=== PATIENT | female | born 1970 | race Two or more races ===

== ENCOUNTER 2019-01-24 21:50 | Inpatient (IN) | payer OTHER ==
[~2019-01-24] VITALS: Ht 160 cm; Wt 97.5 kg
[2019-01-24] MEDS ORDERED: IV NS 0.9% 1,000 ML BAG IV ONE (22:00)
[2019-01-24] MEDS ORDERED: METOCLOPRAMIDE HCL 10 MG/2 ML VIAL IV ONE (22:00)
[2019-01-24] MEDS ORDERED: METOCLOPRAMIDE HCL 10 MG/2 ML VIAL ONE (22:04)
--- NOTE | 2019-01-24 22:05 | NUR ---
PT [id number] FR HOME FOR FLU-LIKE S/S, CHILLS, N/V/D SINCE XMONDAY, HYPOTENSIVE 70/45 W/ BG 96 IN FIELD, GIVEN NS 1L IVB & ZOFRAN 4MG IN FIELD. PT AOX4. C/O OF "PAIN ALL OVER". PT ON MONITOR IN BED 1. WILL CONTINUE TO MONITOR.
--- NOTE | 2019-01-24 22:08 | NUR ---
PHLEB AT BEDSIDE FOR BLOOD DRAW
[2019-01-24 22:16] LABS: HEMOGLOBIN 11.7 g/dL (11.5-14.8); LYMPHOCYTES # (AUTO) 0.7 /CMM (0.8-4.8); MONOCYTES # (AUTO) 0.5 /CMM (0.1-1.30); NEUTROPHILS # (AUTO) 9.8 /CMM (1.8-8.9); PLATELET COUNT (AUTO) 81 /CMM (150-450)
[2019-01-24 22:20] LABS: BASOPHILS % (AUTO) 0.2 % (0.0-2.0); EOSINOPHILS % (AUTO) 0.3 % (0.0-6.0); HEMATOCRIT 36 % (33-45); LYMPHOCYTES % (AUTO) 6.4 % (20.0-44.0); MEAN CORPUSCULAR HGB CONC 33 g/dl (31.0-36.0); MEAN CORPUSCULAR VOLUME 93 fL (82-100); MONOCYTES % (AUTO) 4.6 % (2.0-12.0); NEUTROPHILS % (AUTO) 88.5 % (43.0-81.0); RED BLOOD CELL COUNT(AUTO) 3.83 MIL/uL (4.0-5.2); WHITE BLOOD COUNT (AUTO) 11.1 K/uL (4.3-11.0)
[2019-01-24 22:22] LABS: CALCIUM, SERUM 7.5 mg/dL (8.5-10.1); CARBON DIOXIDE 21 mmol/L (21-32); CHLORIDE 106 mmol/L (98-107); CREATININE 2.6 mg/dL (0.6-1.3); GLUCOSE 92 mg/dL (74-106); POTASSIUM 4.4 mmol/L (3.5-5.1); SODIUM SERUM 139 mmol/L (136-145); UREA NITROGEN, BLOOD 22 mg/dL (7-18)
[2019-01-24 22:28] LABS: ALANINE AMINOTRANSFERASE 56 U/L (12-78); ALKALINE PHOSPHATASE 150 U/L (46-116); ASPARTATE AMINOTRANSFERASE 49 U/L (15-37); BILIRUBIN,DIRECT 1.5 mg/dL (0.0-0.2); BILIRUBIN,TOTAL 1.8 mg/dL (0.2-1.0); LIPASE 23 U/L (73-393); TOTAL PROTEIN, SERUM 5.3 g/dL (6.4-8.2)
[2019-01-24 23:19] LABS: BAND % (MANUAL) 31 % (0.0-5.0); LYMPHOCYTES % (MANUAL) 8 % (16-48); METAMYELOCYTES % 2 % (0-0); NEUTROPHILS % (MANUAL) 55 (42-76); PROMYELOCYTES % 1 % (0-0); REACTIVE LYMPHOCYTES 3 % (0-0)
[2019-01-24] MEDS ORDERED: ONDANSETRON HCL/PF 4 MG/2 ML VIAL IM ONE (23:30)
--- NOTE | 2019-01-24 23:32 | NUR ---
PT TAKEN TO RADIOLOGY [facility]IA [facility]
--- NOTE | 2019-01-24 23:47 | NUR ---
PT RETURNED FROM RADIOLOGY
--- NOTE | 2019-01-25 00:20 | NUR ---
PT UNABLE TO PROVIDE URINE SAMPLE AT THIS TIME
--- NOTE | 2019-01-25 00:25 | NUR ---
Patient is resting comfortably in bed with eyes closed. Easily aroused.
--- NOTE | 2019-01-25 00:38 | NUR ---
PT TAKEN TO RADIOLOGY [facility]IA [facility]
--- NOTE | 2019-01-25 00:47 | NUR ---
PT RETURNED FROM RADIOLOGY VIA [facility]
[2019-01-25] MEDS ORDERED: LISI10TA5 PO (01:10)
[2019-01-25] MEDS ORDERED: GABA600T12 PO (01:10)
[2019-01-25] MEDS ORDERED: OXYB10TA30 PO (01:11)
[2019-01-25 01:29] LABS: APPEARANCE,URINE Cloudy (CLEAR); BILIRUBIN,URINE MODERATE (NEGATIVE); BLOOD, URINE Moderate Ery/uL (NEGATIVE); COLOR,URINE Dark (YELLOW); KETONES,URINE Trace (NEGATIVE); LEUKOCYTE ESTERASE ,URINE Large (NEGATIVE); NITRITE, URINE Negative (NEGATIVE); PROTEIN,URINE 100 mg/dl (NEGATIVE); UGLUCOSE Negative (NEGATIVE)
[2019-01-25 01:56] LABS: BACTERIA,URINE Many /HPF (None Seen); RBC,URINE 51-80 /HPF (0-2); WBC,URINE 81-100 /HPF (0-3)
[2019-01-25 01:57] LABS: SQUAMOUS EPITHELIAL CELL,UR Few /HPF (None Seen)
[2019-01-25] MEDS ORDERED: CEFTRIAXONE 1GM BAG (ER ONLY) 50 ML IV ONE (02:21)
--- NOTE | 2019-01-25 02:26 | NUR ---
Patient is resting comfortably in bed with eyes closed. Easily aroused.
[2019-01-25] MEDS ORDERED: MAG HYDROX/AL HYDROX/SIMETH 30 ML UDC PO PRN (02:30)
[2019-01-25] MEDS ORDERED: CEFTRIAXONE 1GM BAG (ER ONLY) 1 GM/50 ML PIGGYBACK IV ONE (02:30)
[2019-01-25] MEDS ORDERED: MAGNESIUM HYDROXIDE 30 ML UDC PO PRN (02:30)
[2019-01-25] MEDS ORDERED: ONDANSETRON HCL/PF 4 MG/2 ML VIAL IVP PRN (02:30)
--- NOTE | 2019-01-25 02:58 | NUR ---
REPORT GIVEN TO MIO MONDRAGON FOR ADAM
[2019-01-25] MEDS: IV 1/2NS 1000 ML 1,000 ML IV PRN ×2 (03:25→21:23)
--- NOTE | 2019-01-25 03:40 | NUR ---
TD RN NOTES RECEIVED PT ON BED. A/O X 4. ON ROOM AIR NO RESPIRATORY DISTRESS NOTED. ON TELE MONITOR ST 100. IV ACCESS ON RAC G18 AND LACG18 BOTH PATENT AND INTACT. HEAD OF BED ELEVATED. SIDE RAILS UP. CALL LIGHT WITHIN REACH. BED ALARM ON. WILL CONTINUE TO MONITOR PT CLOSELY.
[2019-01-25 04:00] VITALS: BP 90/53
[2019-01-25] MEDS: ACETAMINOPHEN 325 MG TABLET PO PRN (04:50)
[2019-01-25 06:28] LABS: BASOPHILS % (AUTO) 0.1 % (0.0-2.0); EOSINOPHILS % (AUTO) 0.4 % (0.0-6.0); HEMATOCRIT 37 % (33-45); HEMOGLOBIN 12.1 g/dL (11.5-14.8); LYMPHOCYTES % (AUTO) 8.9 % (20.0-44.0); MEAN CORPUSCULAR HGB CONC 33 g/dl (31.0-36.0); MEAN CORPUSCULAR VOLUME 92 fL (82-100); MONOCYTES # (AUTO) 0.5 /CMM (0.1-1.30); MONOCYTES % (AUTO) 4.9 % (2.0-12.0); NEUTROPHILS # (AUTO) 9.2 /CMM (1.8-8.9); NEUTROPHILS % (AUTO) 85.7 % (43.0-81.0); PLATELET COUNT (AUTO) 71 /CMM (150-450); RED BLOOD CELL COUNT(AUTO) 4.02 MIL/uL (4.0-5.2); WHITE BLOOD COUNT (AUTO) 10.7 K/uL (4.3-11.0)
--- NOTE | 2019-01-25 06:52 | NUR ---
TD RN NOTES NO ACUTE CHANGES NOTED DURING THE SHIFT. PROVIDED COMFORT AND SAFETY. WILL ENDORSE TO THE AM NURSE FOR CONTINUITY OF CARE.
[2019-01-25 07:05] LABS: CHOLESTEROL 73 mg/dL (<200); LDL 24 mg/dL (0-99); THYROID STIMULATING HORMONE 1.878 uIU/mL (0.358-3.74); TRIGLYCERIDES 174 mg/dL (30-150)
[2019-01-25 07:14] LABS: ALANINE AMINOTRANSFERASE 59 U/L (12-78); ALKALINE PHOSPHATASE 157 U/L (46-116); ASPARTATE AMINOTRANSFERASE 57 U/L (15-37); CALCIUM, SERUM 7.3 mg/dL (8.5-10.1); CARBON DIOXIDE 12 mmol/L (21-32); CHLORIDE 107 mmol/L (98-107); CREATININE 2.4 mg/dL (0.6-1.3); GLUCOSE 74 mg/dL (74-106); MAGNESIUM 1.4 mg/dL (1.8-2.4); PHOSPHORUS 5.4 mg/dL (2.5-4.9); POTASSIUM 3.8 mmol/L (3.5-5.1); SODIUM SERUM 139 mmol/L (136-145); TOTAL PROTEIN, SERUM 5.3 g/dL (6.4-8.2); UREA NITROGEN, BLOOD 23 mg/dL (7-18)
--- NOTE | 2019-01-25 07:15 | NUR ---
RN INITIAL NOTE PATIENT IN BED, AWAKE AND ALERT. NO COMPLAINS OF ANY PAIN NOR SOB AT THIS TIME. ON ROOM AIR. ON TELE MONITOR, SR ST. HAS RIGHT AND LEFT AC 318 WITH HALF NS AT 100 ML/HR. BED LOCKED AND IN LOWEST POSITION. CALL LIGHT WITHIN REACH. WILL CONTINUE TO MONITOR CLOSELY.
[2019-01-25 07:21] LABS: HDL CHOLESTEROL < 10 mg/dL (40-60)
[2019-01-25 08:00] VITALS: BP 97/57
[2019-01-25] MEDS: PANTOPRAZOLE 40 MG TABLET.DR PO SCH (08:19)
[2019-01-25] MEDS: GABAPENTIN 300 MG CAPSULE PO SCH ×3 (08:19→16:04)
--- NOTE | 2019-01-25 08:19 | NUR ---
RN NOTE LISINOPRIL NOT ADMINISTERED BECAUSE OF LOW BP 97/57. PATIENT INITIALLY CAME FROM ER WITH HYPOTN
[2019-01-25] MEDS ORDERED: LISINOPRIL (10MG) 10 MG TABLET PO SCH (09:00)
[2019-01-25 09:09] LABS: BAND % (MANUAL) 15 % (0.0-5.0); EOSINOPHILS % (MANUAL) 1 % (0-4); LYMPHOCYTES % (MANUAL) 7 % (16-48); MONOCYTES % (MANUAL) 4 % (0-11.0); MYELOCYTES % 1 % (0-0); NEUTROPHILS % (MANUAL) 72 (42-76)
--- NOTE | 2019-01-25 10:17 | NUR ---
RN NOTE DR KIM AT BEDSIDE, PATIENT STATES THAT SHE USED TO DRINK ALCOHOL BEFORE BUT STOPPED 3 MONTHS AGO. LAST ALCOHOL SHE DRANK WAS SUNDAY. ORDERED ATIVAN PO Q6H PRN FOR ALCOHOL WITHDRAWAL. ORDER CARRIED OUT
[2019-01-25] MEDS: Magnesium 1GM/D5W 100ML PREMIX 100 ML IV SCH ×2 (10:41→11:46)
[2019-01-25 12:00] VITALS: BP 99/60
[2019-01-25] MEDS: LORAZEPAM 1 MG TABLET PO PRN ×2 (12:13→19:55)
--- NOTE | 2019-01-25 14:35 | NUR ---
RN NOTE PATIENT'S LACTIC ACID IS 5.8, WILL LET DR KIM AWARE.
--- NOTE | 2019-01-25 15:31 | NUR ---
RN NOTE PATIENT WAS PLACED IN 2L NC DUE TO SOB. O2 SAT 98%.
[2019-01-25 16:00] VITALS: BP 114/73
--- NOTE | 2019-01-25 18:52 | NUR ---
RN CLOSING NOTE PATIENT IN BED, AWAKE, OPENS EYES ONLY, NON VERBAL. ALL MEDS GIVEN, ALL NEEDS MET. WOUND TX ORDERED FOR SACRAL REDNESS. REPOSITIONED PER PROTOCOL. PATIENT HAS NO SIGNS OF ANY DISTRESS NOR PAIN AT THIS TIME. HD SCHEDULED FOR TOMORROW. BED LOCKED AND IN LOWEST POSITION. WILL ENDORSE TO NOC SHIFT FOR ADAM Addendum: 01/25/19 at 1853 by IRVING MALDONADO RN WRONG PATIENT DOCUMENTATION
--- NOTE | 2019-01-25 18:56 | NUR ---
RN CLOSING NOTE PATIENT IN BED, AWAKE AND ALERTX4. ALL MEDS GIVEN, ALL NEEDS MET. PATIENT IS AMBULATORY STEADY GAIT. HAS RIGHT AND LEFT AC #18 - WITH HALF NS AT 100 ML/HR. PATIENT HAS A PRN ATIVAN Q6H. BED ON LOWEST POSITION. CALL LIGHT WITHIN REACH. ENDORSED TO NOC SHIFT FOR ADAM
[2019-01-25] MEDS: MORPHINE SULFATE INJ 2 MG/ML DISP.SYRIN IV PRN (19:21)
--- NOTE | 2019-01-25 19:25 | NUR ---
FLIGHT HOSTESS NOTES RECEIVED PT ON BED, A/O X 4, VERY RESTLESS WANTING TO GO HOME. ON TELE MONITOR ST 126. ON NASAL CANNULA 2LPM NO RESPIRATORY DISTRESS NOTED. IV ACCESS ON RAC G18 1/ NS RUNNING @ 100CC/HR, PATENT AND INTACT. HEAD OF BED ELEVATED. SIDE RAILS UP. CALL LIGHT WITHIN REACH. BED ALARM ON. BED IN LOW AND LOCKED POSITION WILL MONITOR PT CLOSELY.
[2019-01-25 20:00] VITALS: BP 100/52
[2019-01-26] VITALS (7 sets, daily range): BP systolic 85–122; BP diastolic 53–78
[2019-01-26] MEDS ORDERED: IV NS 0.9% 500 ML IV ONE (00:30)
--- NOTE | 2019-01-26 00:45 | NUR ---
REDYE HAND NOTES PT HYPOTENSIVE, PER WESTERN TACK ASSEMBLY LINE WORKER HUMAN RESOURCES RECRUITER. GIVEN X1 500ML NS BOLUS.
[2019-01-26] MEDS: CEFTRIAXONE 1 G in IV D5W 50 ML IV SCH (02:34)
--- NOTE | 2019-01-26 05:55 | NUR ---
COUNSELLING PSYCHOLOGIST NOTES ACCUCHECK 44 AND 37MG/DL. GIVEN ORANGE JUICE WITH 2 PACKETS OF SUGAR, WILL RECHECK IN 30MINS. AWAITING PROCESS SAFETY SPECIALIST ORDER.
[2019-01-26] MEDS ORDERED: DEXTROSE 50%-WATER 50 ML DISP.SYRIN IVP STA (05:58)
[2019-01-26 06:18] LABS: BASOPHILS # (AUTO) 0.1 /CMM (0.0-0.2); BASOPHILS % (AUTO) 0.3 % (0.0-2.0); HEMATOCRIT 36 % (33-45); HEMOGLOBIN 11.9 g/dL (11.5-14.8); LYMPHOCYTES # (AUTO) 1.6 /CMM (0.8-4.8); LYMPHOCYTES % (AUTO) 7.5 % (20.0-44.0); MEAN CORPUSCULAR HGB CONC 33 g/dl (31.0-36.0); MEAN CORPUSCULAR VOLUME 91 fL (82-100); MONOCYTES # (AUTO) 0.8 /CMM (0.1-1.30); MONOCYTES % (AUTO) 3.6 % (2.0-12.0); NEUTROPHILS # (AUTO) 18.1 /CMM (1.8-8.9); NEUTROPHILS % (AUTO) 84.6 % (43.0-81.0); PLATELET COUNT (AUTO) 69 /CMM (150-450); RED BLOOD CELL COUNT(AUTO) 3.99 MIL/uL (4.0-5.2); WHITE BLOOD COUNT (AUTO) 21.4 K/uL (4.3-11.0)
[2019-01-26 06:39] LABS: CALCIUM, SERUM 7.2 mg/dL (8.5-10.1); CREATININE 3.1 mg/dL (0.6-1.3); MAGNESIUM 2.1 mg/dL (1.8-2.4); PHOSPHORUS 5.9 mg/dL (2.5-4.9)
[2019-01-26] MEDS: IV D5/ 0.9% NACL 1,000 ML IV PRN (06:44)
--- NOTE | 2019-01-26 06:47 | NUR ---
TOPOGRAPHICAL SURVEYOR NOTES PT GIVEN D50 IVP. SUGAR CHECK AFTER 30MINS, 130MG/DL. PRESS WASHER INFORMED. PER PRESS WASHER D5NS @ 75CC/HR.
--- NOTE | 2019-01-26 07:10 | NUR ---
STALLION MANAGER OPENING NOTES RECEIVED PT ON BED, A/O X 4, RESTLESS, ON TELE MONITOR ST 118. ON NASAL CANNULA 2LPM NO RESPIRATORY/CARDIAC DISTRESS OR SOB NOTED. IV ACCESS ON RAC G18 D5 NS RUNNING @ 75 CC/HR, PATENT AND INTACT. IV LAC #18, SL, PATENT, INTACT AND FLUSHED WELL. HEAD OF BED ELEVATED. SIDE RAILS UP X2. CALL LIGHT WITHIN REACH. BED ALARM ON. BED IN LOW AND LOCKED POSITION. WILL MONITOR PT CLOSELY.
--- NOTE | 2019-01-26 07:29 | NUR ---
ASSOCIATE BIOLOGICAL SALES NOTES REPORT GIVEN TO AM NURSE FOR CONTINUITY OF CARE.
[2019-01-26] MEDS: PANTOPRAZOLE 40 MG TABLET.DR PO SCH (08:15)
[2019-01-26] MEDS: GABAPENTIN 300 MG CAPSULE PO SCH ×3 (08:15→17:09)
[2019-01-26] MEDS: MORPHINE SULFATE INJ 2 MG/ML DISP.SYRIN IV PRN ×2 (09:34→23:41)
[2019-01-26 09:46] LABS: BAND % (MANUAL) 10 % (0.0-5.0); LYMPHOCYTES % (MANUAL) 12 % (16-48); MONOCYTES % (MANUAL) 7 % (0-11.0); NEUTROPHILS % (MANUAL) 71 (42-76)
[2019-01-26] MEDS: CALCIUM ACETATE 667 MG TABLET PO SCH ×2 (13:10→17:09)
--- NOTE | 2019-01-26 14:16 | NUR ---
SEED CORN PRODUCTION MANAGER NOTE PLATELETS 69. DR JUDY WEST MADE AWARE AT BEDSIDE. NO ORDER MADE.
--- NOTE | 2019-01-26 18:59 | NUR ---
RN CLOSING NOTE PATIENT IN BED, AWAKE AND ALERTX4. ALL MEDS GIVEN, ALL NEEDS MET. PATIENT IS AMBULATORY STEADY GAIT. ON TELE MONITOR ST 110. ON NC 2L SATURATING 97%. NO SIGN OF RESPIRATORY/CARDIAC DISTRESS OR SOB AT THIS TIME. NO SIGNIFICANT CHANGE DURING THE SHIFT. BED ON LOWEST AND LOCKED POSITION. SIDE RAILS UP X2. CALL LIGHT WITHIN REACH. WILL ENDORSE TO PM NURSE FOR ADAM
--- NOTE | 2019-01-26 19:00 | NUR ---
bi tri operator opening notes Received Pt from morning nurse. Pt is resting in bed comfortably. Pt is alert and orientedX3-4. Respiration is normal in 2 L NC. No SOB. No nausea or vomiting. Pt denies any pain or discomfort. Tele monitor showed sinus tachy 111bpm. IV sites at LAC# 18 is clean, intact, patent and SL. IV sites at RAC# 18 is clean, intact, patent and infusing well D5 NS @ 75ml/hr. Pt's PLT is 69 today, per am nurse Dr. Leon is aware and informed and there's no need to transfuse. Instructed to call. Safety precautions is maintained. Bed at low position, brakes locked, side rails upX2 and call light is within reach. Will continue to monitor.
[2019-01-26 19:53] LABS: CREATININE, URINE 44.2 MG/DL (30.0-125.0)
[2019-01-26] MEDS: ACETAMINOPHEN 325 MG TABLET PO PRN (22:01)
--- NOTE | 2019-01-26 22:01 | NUR ---
records administrator notes Pt is complaining of headache. Administered Tylenol 325mg/2 tabs/PO as ordered for headache per Pt request. Will continue to monitor.
--- NOTE | 2019-01-26 23:42 | NUR ---
admissions dean notes Pt is requesting pain medication. Administered morphine sulfate inj 1mg/0.5 ml IV push as order for generalized body pain 8/10 on pain scale per Pt request. VS is stable. Afebrile. Tele monitor showed sinus tachy 111 bpm. Instructed to call. Safety precautions is maintained. Will continue to monitor.
[2019-01-27] VITALS (7 sets, daily range): BP systolic 101–135; BP diastolic 60–91
[2019-01-27] MEDS: IV D5/ 0.9% NACL 1,000 ML IV PRN ×2 (01:23→18:28)
[2019-01-27] MEDS: CEFTRIAXONE 1 G in IV D5W 50 ML IV SCH (02:01)
[2019-01-27] MEDS: MORPHINE SULFATE INJ 2 MG/ML DISP.SYRIN IV PRN ×2 (05:12→23:23)
--- NOTE | 2019-01-27 05:18 | NUR ---
director learning services notes Pt is complaining of pain. Administered morphine sulfate inj 1mg/0.5 ml IV push as order for generalized body pain 9/10 on pain scale per Pt request. VS is stable. Afebrile. Tele monitor showed sinus tachy 103 bpm. Instructed to call. Safety precautions is maintained. Will continue to monitor.
[2019-01-27 06:29] LABS: ALBUMIN 1.5 g/dL (3.4-5.0); CALCIUM, SERUM 7.4 mg/dL (8.5-10.1)
--- NOTE | 2019-01-27 06:49 | NUR ---
threading machine tender closing notes Pt is resting in bed comfortably. Awaken easily. Respiration is normal in 2 L NC. No SOB. No nausea or vomiting. No S/S of distress noted. IV sites at LAC# 18 is clean, intact, patent and SL. IV sites RAC# 18 is clean, intact, patent and infusing well D5NS @ 75 ml/hr. Routine meds were given as order including PRN meds for pain management. Kept Pt clean, dry, warm and comfortable. All needs met and attended. Instructed to call. Bed at low position, brakes locked, side rails upX2, bed alarm is on and call light is within reach. Will endorse to morning nurse for ADAM.
--- NOTE | 2019-01-27 07:30 | NUR ---
HEEL SPRAYER FIRST OPENING NOTES RECEIVED PT ON BED, A/O X 4, ON TELE MONITOR ST 103. ON NASAL CANNULA 2LPM NO RESPIRATORY/CARDIAC DISTRESS OR SOB NOTED. IV ACCESS ON RAC G18 D5 NS RUNNING @ 75 CC/HR, PATENT AND INTACT. IV LAC #18, SL, PATENT, INTACT AND FLUSHED WELL. HEAD OF BED ELEVATED. SIDE RAILS UP X2. CALL LIGHT WITHIN REACH. BED ALARM ON. BED IN LOW AND LOCKED POSITION. WILL MONITOR PT CLOSELY.
[2019-01-27] MEDS: CALCIUM ACETATE 667 MG TABLET PO SCH ×3 (08:51→17:25)
[2019-01-27] MEDS: GABAPENTIN 300 MG CAPSULE PO SCH ×3 (08:51→17:25)
[2019-01-27] MEDS: PANTOPRAZOLE 40 MG TABLET.DR PO SCH (08:52)
--- NOTE | 2019-01-27 11:45 | NUR ---
PATIENT HAD ONE EPISODE OF VOMITING, VERY SMALL AMOUNT. ACCORDING TO HER SHE VOMITED AFTER HAVING TWO CUPS OF COFFEE. NO COMPLAIN OF CHEST PAIN. VS STABLE. ZOFRAN GIVEN, WILL CONTINUE TO MONITOR.
--- NOTE | 2019-01-27 19:08 | NUR ---
RN CLOSING NOTE PATIENT IN BED, AWAKE AND ALERTX4. PATIENT IS AMBULATORY STEADY GAIT. ON TELE MONITOR SR/ ST 101. ON ROOM AIR, NO SIGN OF RESPIRATORY/CARDIAC DISTRESS OR SOB AT THIS TIME. NO COMPLAIN OF PAIN, NO N/V. NO SIGNIFICANT CHANGE DURING THE SHIFT. FAMILY MEMBERS WERE AT BEDSIDE EARLIER. BED ON LOWEST AND LOCKED POSITION. SIDE RAILS UP X2. CALL LIGHT WITHIN REACH. ALL NEEDS ATTENDED. WILL ENDORSE TO PM NURSE FOR ADAM
[2019-01-27] MEDS: ACETAMINOPHEN 325 MG TABLET PO PRN (21:24)
[2019-01-28] VITALS: BP 114/65
[2019-01-28] MEDS: CEFTRIAXONE 1 G in IV D5W 50 ML IV SCH (03:44)
[2019-01-28 04:00] VITALS: BP_SYST 114; BP_SYST 130; BP_DIAS 65; BP_DIAS 80
[2019-01-28] MEDS: ACETAMINOPHEN 325 MG TABLET PO PRN ×2 (05:33→13:10)
[2019-01-28 06:41] LABS: BASOPHILS # (AUTO) 0.1 /CMM (0.0-0.2); BASOPHILS % (AUTO) 0.5 % (0.0-2.0); EOSINOPHILS % (AUTO) 0.6 % (0.0-6.0); HEMATOCRIT 33 % (33-45); HEMOGLOBIN 10.9 g/dL (11.5-14.8); LYMPHOCYTES # (AUTO) 1.5 /CMM (0.8-4.8); LYMPHOCYTES % (AUTO) 7.2 % (20.0-44.0); MEAN CORPUSCULAR HGB CONC 33 g/dl (31.0-36.0); MEAN CORPUSCULAR VOLUME 90 fL (82-100); MONOCYTES # (AUTO) 1.2 /CMM (0.1-1.30); MONOCYTES % (AUTO) 5.8 % (2.0-12.0); NEUTROPHILS # (AUTO) 17.4 /CMM (1.8-8.9); NEUTROPHILS % (AUTO) 85.9 % (43.0-81.0); PLATELET COUNT (AUTO) 56 /CMM (150-450); WHITE BLOOD COUNT (AUTO) 20.2 K/uL (4.3-11.0)
[2019-01-28 06:58] LABS: CALCIUM, SERUM 7.7 mg/dL (8.5-10.1); CREATININE 2.6 mg/dL (0.6-1.3); MAGNESIUM 2.5 mg/dL (1.8-2.4); PHOSPHORUS 4.7 mg/dL (2.5-4.9); POTASSIUM 3.1 mmol/L (3.5-5.1)
--- NOTE | 2019-01-28 07:30 | NUR ---
PERMANENT WAVER AM NOTES RECEIVED PT IN BED, A/O X 4, ON 2L O2 NC,NO SOB, RESPIRATION UNLABORED, ST 102 ON MONITOR. DENIES ANY PAIN OR DISCOMFORT AT THIS TIME, IV ACCESS ON RAC G18 D5 NS RUNNING @ 75 CC/HR, PATENT AND INTACT. SITE CLEAR. HEAD OF BED ELEVATED. SIDE RAILS UP X2. CALL LIGHT WITHIN REACH. BED ALARM ON. BED IN LOW AND LOCKED POSITION. WILL MONITOR PT CLOSELY.
[2019-01-28 08:00] VITALS: BP 145/85
[2019-01-28 08:02] VITALS: BP 145/85
[2019-01-28 08:06] LABS: HIV SCRN 4G wRFX Non Reactive (Non Reactive)
[2019-01-28] MEDS: PANTOPRAZOLE 40 MG TABLET.DR PO SCH (08:13)
[2019-01-28] MEDS: CALCIUM ACETATE 667 MG TABLET PO SCH ×3 (08:13→17:10)
[2019-01-28] MEDS: GABAPENTIN 300 MG CAPSULE PO SCH ×3 (08:13→17:10)
[2019-01-28 08:15] LABS: BAND % (MANUAL) 8 % (0.0-5.0); EOSINOPHILS % (MANUAL) 1 % (0-4); LYMPHOCYTES % (MANUAL) 8 % (16-48); MONOCYTES % (MANUAL) 3 % (0-11.0); NEUTROPHILS % (MANUAL) 80 (42-76)
[2019-01-28] MEDS ORDERED: POTASSIUM CHLORIDE 20 MEQ TAB.PRT.SR PO ONE (09:00)
--- NOTE | 2019-01-28 09:30 | NUR ---
RN NOTES DUE MEDS GIVEN
[2019-01-28 16:00] VITALS: BP 133/81
[2019-01-28] MEDS: HYDROCODONE/APAP 5/325MG 1 EACH TABLET PO PRN ×2 (18:22→23:05)
--- NOTE | 2019-01-28 18:25 | NUR ---
RN CLOSING NOTES PT RESTING IN BED, A/O X 4, ON 2L O2 NC,NO SOB, RESPIRATION UNLABORED, ST 100s ON MONITOR. DENIES ANY PAIN OR DISCOMFORT AT THIS TIME, IV ACCESS ON RAC G18 D5 NS RUNNING @ 75 CC/HR, PATENT AND INTACT. SITE CLEAR. HEAD OF BED ELEVATED. SIDE RAILS UP X2. CALL LIGHT WITHIN REACH. BED ALARM ON. BED IN LOW AND LOCKED POSITION. ALL NEEDS MET. PM CARE DONE. WILL ENDORSE TO NEXT SHIFT FOR ADAM.
[2019-01-28 20:00] VITALS: BP 137/86
--- NOTE | 2019-01-28 20:19 | NUR ---
RN OPENING NOTES RECEIVED REPORT FROM MADELINE LIEBERMAN. PATIENT A/A/O X4, ABLE TO VERBALIZE NEEDS. BREATHING EVEN & UNLABORED, TOLERATING ROOM AIR. DENIES ANY SOB OR DIFFICULTY BREATHING. RADIAL PULSES PRESENT. LEFT AC IV #18 INTACT & PATENT W/ DRESSING CDI & IVF D5NS INFUSING WELL @ 75 ML/HR. DENIES ANY PAIN OR DISCOMFORT @ THIS TIME. SAFETY MEASURES IN PLACE W/ SIDE RAILS UP & CALL LIGHT PLACED WITHIN REACH. ABLE TO AMBULATE INDEPENDENTLY. INSTRUCTED TO CALL FOR ASSISTANCE. WILL CONTINUE TO MONITOR.
[2019-01-28] MEDS: PIPERACILLIN /TAZOBACTAM 2.25 G in IV D5W 50 ML IV SCH (22:07)
--- NOTE | 2019-01-28 22:15 | NUR ---
RN NOTES INITIAL BLADDER SCAN = >300ML URINE. STRAIGHT CATH DONE PER MD ORDER. TOTAL AMOUNT URINE = 300ML. PER PATIENT, SHE PEED RIGHT BEFORE STRAIGHT CATH.
[2019-01-29] MEDS: ACETAMINOPHEN 325 MG TABLET PO PRN ×4 (01:33→21:28)
[2019-01-29] MEDS: IV D5/ 0.9% NACL 1,000 ML IV PRN ×2 (03:23→22:35)
[2019-01-29 04:00] VITALS: BP 123/78
[2019-01-29] MEDS: PIPERACILLIN /TAZOBACTAM 2.25 G in IV D5W 50 ML IV SCH (04:35)
--- NOTE | 2019-01-29 06:15 | NUR ---
RN NOTES BLADDER SCAN = >300ML URINE & STRAIGHT CATH DONE PER MD ORDER. TOTAL AMOUNT URINE = 500ML.
[2019-01-29 06:22] LABS: BASOPHILS % (AUTO) 0.1 % (0.0-2.0); EOSINOPHILS % (AUTO) 0.5 % (0.0-6.0); HEMATOCRIT 29 % (33-45); HEMOGLOBIN 9.8 g/dL (11.5-14.8); LYMPHOCYTES # (AUTO) 1.7 /CMM (0.8-4.8); LYMPHOCYTES % (AUTO) 9.7 % (20.0-44.0); MEAN CORPUSCULAR HGB CONC 34 g/dl (31.0-36.0); MEAN CORPUSCULAR VOLUME 89 fL (82-100); MONOCYTES # (AUTO) 1.6 /CMM (0.1-1.30); MONOCYTES % (AUTO) 9.2 % (2.0-12.0); NEUTROPHILS # (AUTO) 14.3 /CMM (1.8-8.9); NEUTROPHILS % (AUTO) 80.5 % (43.0-81.0); PLATELET COUNT (AUTO) 81 /CMM (150-450); RED BLOOD CELL COUNT(AUTO) 3.29 MIL/uL (4.0-5.2); WHITE BLOOD COUNT (AUTO) 17.8 K/uL (4.3-11.0)
[2019-01-29 06:54] LABS: CALCIUM, SERUM 7.6 mg/dL (8.5-10.1); CREATININE 2.3 mg/dL (0.6-1.3); PHOSPHORUS 4.2 mg/dL (2.5-4.9); POTASSIUM 3.2 mmol/L (3.5-5.1); TOTAL PROTEIN, SERUM 5.1 g/dL (6.4-8.2)
[2019-01-29 06:59] LABS: ALBUMIN 1.4 g/dL (3.4-5.0)
[2019-01-29 07:36] LABS: BAND % (MANUAL) 7 % (0.0-5.0); EOSINOPHILS % (MANUAL) 1 % (0-4); LYMPHOCYTES % (MANUAL) 10 % (16-48); METAMYELOCYTES % 1 % (0-0); MONOCYTES % (MANUAL) 9 % (0-11.0); NEUTROPHILS % (MANUAL) 72 (42-76)
[2019-01-29] MEDS: CALCIUM ACETATE 667 MG TABLET PO SCH ×3 (07:59→18:18)
[2019-01-29] MEDS: PANTOPRAZOLE 40 MG TABLET.DR PO SCH (07:59)
[2019-01-29] MEDS: GABAPENTIN 300 MG CAPSULE PO SCH ×3 (07:59→18:18)
[2019-01-29 08:00] VITALS: BP 153/91
[2019-01-29 08:06] LABS: COMPLEMENT C3, SERUM 88 mg/dL (82-167); COMPLEMENT C4, SERUM 37 mg/dL (14-44)
[2019-01-29] MEDS: POTASSIUM CL. PREMIX PERIPHER. 50 ML IV SCH ×2 (08:31→09:34)
[2019-01-29 12:00] VITALS: BP 150/51
--- NOTE | 2019-01-29 14:00 | NUR ---
BLADDER SCAN DONE. URINE RESIDUAL 135 ML.
[2019-01-29] MEDS: PIPERACILLIN /TAZOBACTAM 3.375 G in IV D5W 100 ML IV SCH ×2 (14:35→21:27)
[2019-01-29 16:00] VITALS: BP 151/87
--- NOTE | 2019-01-29 16:50 | NUR ---
PATIENT'S FAMILY AT BEDSIDE, CALLED AND SAID: "SHE IS FEELING HOT". PATIENT FOUND EATING FOOD THAT FAMILY BROUGHT FOR HER. TOLD HER TO NOT EAT FRO 5 MIN. CHECKED TEMPERATURE 101F. PUT 2 ICE BAGS ON HER FOREHEAD AND THE TEMPERATURE RECHECKED IN 30 MIN, 98.5F. CHARGE NURSE MADE AWARE.
--- NOTE | 2019-01-29 17:04 | NUR ---
DR. JOSE DEMARCO AT BEDSIDE, MADE AWARE ABOUT RECENT PATIENT'S TEMPERATURE FLUCTUATION. NO ORDER MADE.
[2019-01-29 17:06] LABS: *ANA ANTI-CENTROMERE B AB <0.2 AI (0.0-0.9); *ANA ANTI-DNA(DS) AB, QN 2 IU/mL (0-9); *ANA ANTI-JO-1 <0.2 AI (0.0-0.9); *ANA ANTICHROMATIN ANTIBODY <0.2 AI (0.0-0.9); *ANA RNP ANTIBODIES <0.2 AI (0.0-0.9); *ANA SJOGREN'S ANTI-SS-A <0.2 AI (0.0-0.9); *ANA SJOGREN'S ANTI-SS-B <0.2 AI (0.0-0.9); *ANAANTI-SCLERODERMA-70 AB <0.2 AI (0.0-0.9); *ANASMITH AB <0.2 AI (0.0-0.9)
[2019-01-29] MEDS ORDERED: PHENAZOPYRIDINE HCL 200 MG TABLET PO PRN (19:00)
--- NOTE | 2019-01-29 19:20 | NUR ---
RN OPENING NOTES: PATIENT IN BED, AWAKE, AND VERBALLY RESPONSIVE. NO RESPIRATORY DISTRESS. NO PAIN. (L) AC #20 INTACT, PATENT, AND FLUSHING WELL, RUNNING D5NS AT 75 MLS/HR. SAFETY PRECAUTIONS IMPLEMENTED. BED LOCKED AND IN LOWEST POSITION. CALL LIGHT PLACED WITHIN REACH. WILL CONT. TO MONITOR.
[2019-01-29 20:00] VITALS: BP 159/75
--- NOTE | 2019-01-29 20:21 | NUR ---
RN CLOSING NOTE NO SIGNIFICANT CHANGE DURING THE SHIFT. ALL NEEDS ATTENDED. SAFETY MEASURES IN PLACE. BED LOCKED AND LOW, SIDE RIALS UPX2, CALL LIGHT IN REACH. ENDORSED TO PM NURSE FOR ADAM.
--- NOTE | 2019-01-29 21:00 | NUR ---
RN NOTE: PATIENT NOTED WITH LOW GRADE FEVER, 99.6F. TYLENOL GIVEN AND ICE PACKS PROVIDED. WILL CONT. TO MONITOR. Addendum: 01/30/19 at 0742 by ALMA MCKEON RN AT 2200, TEMP CAME DOWN TO 99.4F. NO CHILLS NOTED. WILL CONT. TO MONITOR.
[2019-01-29] MEDS: TAMSULOSIN 0.4 MG CAP.SR.24H PO SCH (21:27)
--- NOTE | 2019-01-29 22:21 | NUR ---
RN NOTE: BLADDER SCAN DONE = 162 MLS. PATIENT ABLE TO VOID FREELY WITHOUT C/O DYSURIA. WILL CONT. TO MONITOR.
--- NOTE | 2019-01-29 22:30 | NUR ---
RN NOTE: IV ACCESS ON (L) AC LEAKING. NEW IV ACCESS REINSTERED ON (R) AC #20. INTACT, PATENT, AND FLUSHING WELL. PATIENT TOLERATED PROCEDURE WELL. WILL MONITOR FOR CHANGES.
[2019-01-29 22:31] LABS: APPEARANCE,URINE Clear (CLEAR); BILIRUBIN,URINE Negative (NEGATIVE); BLOOD, URINE Moderate Ery/uL (NEGATIVE); COLOR,URINE Yellow (YELLOW); KETONES,URINE Negative (NEGATIVE); LEUKOCYTE ESTERASE ,URINE Small (NEGATIVE); NITRITE, URINE Negative (NEGATIVE); PH,URINE 6.5 (5.0-8.0); PROTEIN,URINE Negative (NEGATIVE); UGLUCOSE Negative (NEGATIVE); UROBILINOGEN,URINE 0.2 EU/dL (0.2)
[2019-01-29 23:17] LABS: BACTERIA,URINE None seen /HPF (None Seen); SQUAMOUS EPITHELIAL CELL,UR Few /HPF (None Seen)
[2019-01-30] VITALS (7 sets, daily range): BP systolic 115–145; BP diastolic 68–86
--- NOTE | 2019-01-30 02:44 | NUR ---
RN NOTE: NOTIFIED DR. JOHNSON WITH URINE CULTURE RESULT. PATIENT POSITIVE FOR E.COLI. CONT. ON ZOSYN. NNO.
[2019-01-30] MEDS: HYDROCODONE/APAP 5/325MG 1 EACH TABLET PO PRN ×4 (03:27→21:21)
[2019-01-30] MEDS: PIPERACILLIN /TAZOBACTAM 3.375 G in IV D5W 100 ML IV SCH ×3 (05:56→21:15)
--- NOTE | 2019-01-30 06:50 | NUR ---
RN CLOSING NOTES: PATIENT AWAKE AND VERBALLY RESPONSIVE. A/OX4. NO RESPIRATORY DISTRESS. NO PAIN. BLADDER SCAN DONE, RESULT 119 MLS/HR. PATIENT ABLE TO VOID FREELY WITHOUT DYSURIA. TOTAL URINE OUTPUT DURING SHIFT 1900 MLS. PATIENT AFEBRILE AT THIS TIME 98.9F. SAFETY PRECAUTIONS IMPLEMENTED. CALL LIGHT WITHIN REACH. WILL ENDORSE TO AM SHIFT NURSE FOR CONTINUITY OF CARE. Addendum: 01/30/19 at 0744 by ALMA MCKEON RN PATIENT'S LBM WAS 2 DAYS AGO. OFFERED LAXATIVE BUT PATIENT DECLINED. PER PATIENT, HER BASELINE BOWEL FREQUENCY IS EVERY 2-3 DAYS. ENDORSED TO AM SHIFT NURSE.
[2019-01-30 07:01] LABS: BASOPHILS % (AUTO) 0.1 % (0.0-2.0); EOSINOPHILS % (AUTO) 0.6 % (0.0-6.0); HEMATOCRIT 28 % (33-45); HEMOGLOBIN 9.3 g/dL (11.5-14.8); LYMPHOCYTES % (AUTO) 11.2 % (20.0-44.0); MEAN CORPUSCULAR HGB CONC 33 g/dl (31.0-36.0); MEAN CORPUSCULAR VOLUME 88 fL (82-100); MONOCYTES # (AUTO) 1.6 /CMM (0.1-1.30); MONOCYTES % (AUTO) 8.7 % (2.0-12.0); NEUTROPHILS # (AUTO) 14.6 /CMM (1.8-8.9); NEUTROPHILS % (AUTO) 79.4 % (43.0-81.0); PLATELET COUNT (AUTO) 128 /CMM (150-450); RED BLOOD CELL COUNT(AUTO) 3.19 MIL/uL (4.0-5.2); WHITE BLOOD COUNT (AUTO) 18.4 K/uL (4.3-11.0)
[2019-01-30 07:46] LABS: BAND % (MANUAL) 2 % (0.0-5.0); EOSINOPHILS % (MANUAL) 1 % (0-4); LYMPHOCYTES % (MANUAL) 13 % (16-48); MONOCYTES % (MANUAL) 9 % (0-11.0); NEUTROPHILS % (MANUAL) 75 (42-76)
--- NOTE | 2019-01-30 07:46 | NUR ---
RN OPENING NOTES: RECEIVED PATIENT AWAKE AND RESTING IN BED COMFORTABLY. SHE IS AOX4, VERBAL, AND AMBULATORY. SHE IS ON 2L OF OXYGEN VIA NC, TOLERATING WELL, NO S/SX OF RESP DISTRESS OR SOB. SHE DENIES ANY PAIN OR DISCOMFORT AT THIS TIME. CHEST RISES AND FALLS EVENLY. SKIN IS INTACT. IV SITE ON RAC 20 G IS INTACT AND INFUSING D5NS AT 75ML.HR. SHE IS ON RENAL DIET, TOLERATING WELL. BLADDER SCAN TO BE DONE Q8H. SAFETY MEASURES HAVE BEEN IMPLEMENTED, CALL LIGHT IS WITHIN REACH, BED IS IN LOWEST AND LOCKED POSITION, SIDE RIALS UP X2, WILL CONTINUE TO MONITOR FOR ANY CHANGES.
[2019-01-30 07:49] LABS: ALBUMIN 1.5 g/dL (3.4-5.0); BILIRUBIN,TOTAL 1.2 mg/dL (0.2-1.0); CALCIUM, SERUM 7.7 mg/dL (8.5-10.1); CREATININE 1.7 mg/dL (0.6-1.3); MAGNESIUM 1.5 mg/dL (1.8-2.4); PHOSPHORUS 3.8 mg/dL (2.5-4.9); POTASSIUM 3.5 mmol/L (3.5-5.1); TOTAL PROTEIN, SERUM 5.5 g/dL (6.4-8.2)
[2019-01-30] MEDS: PANTOPRAZOLE 40 MG TABLET.DR PO SCH (08:15)
[2019-01-30] MEDS: CALCIUM ACETATE 667 MG TABLET PO SCH ×3 (08:15→17:04)
[2019-01-30] MEDS: GABAPENTIN 300 MG CAPSULE PO SCH ×3 (08:16→16:53)
[2019-01-30] MEDS ORDERED: Magnesium 1GM/D5W 100ML PREMIX 100 ML IV SCH (11:46)
--- NOTE | 2019-01-30 15:58 | NUR ---
BLADDER SCAN WAS DONE AFTER PATIENT URINATED, 176 ML OF URINE. FC NOT NEEDED ACCORDING TO MD ORDER, WILL CONTINUE TO MONITOR FOR ANY CHANGES
--- NOTE | 2019-01-30 19:28 | NUR ---
RN CLOSING NOTES PATIENT IS RESTING COMFORTABLY IN BED. NO ACUTE CHANGES OCCURRED THROUGHOUT THE SHIFT, VITAL SIGNS ARE STABLE, PT NEEDS HAVE BEEN MET. SAFETY MEASURES HAVE BEEN IMPLEMENTED, CALL LIGHT IS WITHIN REACH, SIDE RIALS UP X2, BED IS IN LOWEST AND LOCKED POSITION, PT HAS BEEN ENDORSED TO NIGHTSHIFT RN FOR CONTINUITY OF CARE.
--- NOTE | 2019-01-30 19:39 | NUR ---
MS RN NOTES RECEIVED PT ON BED. A/O X 4 ON NASAL CANNULA 2LPM NO RESPIRATORY DISTRESS NOTED. IV ACCESS ON RAC G20 WITH D5NS RUNNING @ 75CC/HR. HEAD OF BED ELEVATED. SIDE RAILS UP. CALL LIGHT WITHIN REACH. BED ALARM ON. WILL CONTINUE TO MONITOR PT CLOSELY.
[2019-01-30] MEDS: TAMSULOSIN 0.4 MG CAP.SR.24H PO SCH (21:15)
--- NOTE | 2019-01-30 22:00 | NUR ---
MS RN NOTES BLADDER SCAN SHOWED 100CC.
[2019-01-31 04:00] VITALS: BP 118/72
[2019-01-31] MEDS: PIPERACILLIN /TAZOBACTAM 3.375 G in IV D5W 100 ML IV SCH ×3 (04:18→21:27)
[2019-01-31] MEDS: HYDROCODONE/APAP 5/325MG 1 EACH TABLET PO PRN ×2 (04:18→19:56)
[2019-01-31 07:06] LABS: BASOPHILS # (AUTO) 0.1 /CMM (0.0-0.2); BASOPHILS % (AUTO) 0.5 % (0.0-2.0); EOSINOPHILS % (AUTO) 0.3 % (0.0-6.0); HEMATOCRIT 26 % (33-45); HEMOGLOBIN 8.9 g/dL (11.5-14.8); LYMPHOCYTES # (AUTO) 1.8 /CMM (0.8-4.8); LYMPHOCYTES % (AUTO) 9.5 % (20.0-44.0); MEAN CORPUSCULAR HGB CONC 34 g/dl (31.0-36.0); MEAN CORPUSCULAR VOLUME 88 fL (82-100); MONOCYTES # (AUTO) 1.2 /CMM (0.1-1.30); MONOCYTES % (AUTO) 6.4 % (2.0-12.0); NEUTROPHILS # (AUTO) 16.1 /CMM (1.8-8.9); NEUTROPHILS % (AUTO) 83.3 % (43.0-81.0); PLATELET COUNT (AUTO) 193 /CMM (150-450); RED BLOOD CELL COUNT(AUTO) 2.97 MIL/uL (4.0-5.2); WHITE BLOOD COUNT (AUTO) 19.3 K/uL (4.3-11.0)
[2019-01-31 07:16] LABS: CALCIUM, SERUM 7.9 mg/dL (8.5-10.1); CREATININE 1.5 mg/dL (0.6-1.3); MAGNESIUM 1.5 mg/dL (1.8-2.4); PHOSPHORUS 3.7 mg/dL (2.5-4.9); POTASSIUM 3.6 mmol/L (3.5-5.1)
--- NOTE | 2019-01-31 07:17 | NUR ---
MS RN NOTES NO ACUTE CHANGES NOTED DURING THE SHIFT. WILL ENDORSE TO THE AM NURSE FOR CONTINUITY OF CARE.
--- NOTE | 2019-01-31 07:20 | NUR ---
MS RN NOTES PT IS A/OX4 IN BED AWAKE ABLE TO AMBULATE BY HER SELF. ON 2L O2 97. NO SOB OR PAIN REPORTED BY PT.
[2019-01-31 08:00] VITALS: BP 124/70
[2019-01-31 08:23] LABS: LYMPHOCYTES % (MANUAL) 13 % (16-48); MONOCYTES % (MANUAL) 7 % (0-11.0); NEUTROPHILS % (MANUAL) 80 (42-76)
--- NOTE | 2019-01-31 10:11 | NUR ---
MS RN NOTES BLADDER SCAN SHOWS 188 ML AFTER PATIENT VOIDED.
[2019-01-31] MEDS: GABAPENTIN 300 MG CAPSULE PO SCH ×3 (10:12→17:57)
[2019-01-31] MEDS: PANTOPRAZOLE 40 MG TABLET.DR PO SCH (10:12)
[2019-01-31] MEDS: CALCIUM ACETATE 667 MG TABLET PO SCH ×3 (10:13→17:57)
[2019-01-31 12:00] VITALS: BP 115/75
[2019-01-31] MEDS: IV D5/ 0.9% NACL 1,000 ML IV PRN (12:46)
[2019-01-31] MEDS: Magnesium 1GM/D5W 100ML PREMIX 100 ML IV SCH ×2 (12:55→13:47)
[2019-01-31] MEDS: ACETAMINOPHEN 325 MG TABLET PO PRN (13:04)
--- NOTE | 2019-01-31 14:07 | NUR ---
MS RN NOTES CONTACTED VICE PRESIDENT RESIDENTIAL SOLAR SALES BERTO ABOUT THE CR LEVEL OF THE PATIENT(1.5) AND ASKED IF IT IS OK TO PERFORM CT CHEST WITH CONTRAST. IT IS OK TO PERFORM THE CT WITH CONTRAST PER VICE PRESIDENT RESIDENTIAL SOLAR SALES ORDER.
--- NOTE | 2019-01-31 14:53 | NUR ---
MS RN NOTES CALLED CT LEFT A MSG THAT PATIENT IS READY FOR CT WITH CONTRAST. CONSENT FORM SIGNED.
[2019-01-31 16:00] VITALS: BP 115/75
--- NOTE | 2019-01-31 17:15 | NUR ---
MS RN NOTES PATIENT WAS TAKEN FOR CT ABDOMEN WITH CONTRAST. OK WITH SEAN BASILIO , PATIENT CREATINE LEVEL IS 1.5.
[2019-01-31] MEDS ORDERED: CT SWABBABLE VALVE TRANS SET 1 EA INFUS.SET MC ONE (17:17)
[2019-01-31] MEDS ORDERED: IOHEXOL-300 100 ML VIAL IV ONE (17:17)
--- NOTE | 2019-01-31 19:10 | NUR ---
RN MS OPENING NOTES RECEIVED PATIENT IN SITTING UP IN BED AWAKE ALERT AND ORIENTED X4, RESPIRATIONS EVEN AND UNLABORED WITH EQUAL RISE AND FALL OF CHEST, DENIES ANY PAIN OR DISCOMFORT AT THIS TIME,IV SITE TO LEFT FA #22 AND LEFT AC #20 INTACT AND PATENT, NO REDNESS, NO INFILTRATION PRESENT, IVF IN PLACE ORDERED, ORIENTED TO STAFF AND CALL LIGHT AND KEPT WITHIN REACHM SAFETY PRECAUTIONS IN PLACE, LOW BED AND LOCKED, PATIENT AWARE OF NEW ORDER TO INSERT RAE CATHETER, VERBALIZES SHE UNDERSTANDS, DISCUSSED PLAN OF CARE, ALL NEEDS ATTENDED AT THIS TIME, WILL CONTINUE TO MONITOR. REMAINS COMFORTABLE AT THIS TIME.
--- NOTE | 2019-01-31 19:56 | NUR ---
RN MS NOTES PATIENT COMPLAINT OF PAIN TO "NECK AND GENERALIZED PAIN 8/10" REQUESTING FOR PAIN MEDICATION, NORCO PRN OFFERED PATIENT AGREED, NORCO PEN GIVEN V.S WNL. WILL CONTINUE TO MONITOR FOR EFFECTIVENESS.
[2019-01-31 20:00] VITALS: BP 132/63
--- NOTE | 2019-01-31 20:00 | NUR ---
RN MS NOTES RAE CATHETER INSERTED ORDERED, STERILE TECHNIQUE USED, URINE NOTED YELLOW CLEAR.
[2019-01-31] MEDS: TAMSULOSIN 0.4 MG CAP.SR.24H PO SCH (21:27)
[2019-02-01] MEDS: ACETAMINOPHEN 325 MG TABLET PO PRN ×2 (03:27→21:31)
--- NOTE | 2019-02-01 03:27 | NUR ---
RN MS NOTES PATIENT COMPLAINT OF BODY ACHES REQUESTING FOR TYLENOL , ALSO NOTED TEMP 100.2 TYLENOL GIVEN , OFFERED COOLING MEASURE PATIENT DOES NOT WANT AT THIS TIME. WILL CONTINUE TO MONITOR FOR EFFECTIVENESS.
--- NOTE | 2019-02-01 03:30 | NUR ---
RN MS NOTES DR. JOHNSON MADE AWARE OF TEMPERATURE AT 100.2, TYLENOL PRN GIVEN, BLOOD CULTURES ARE PENDING AND URINE COLLECTED FOR CULTURES THIS SHIFT, AND ON ZOSYN ABX Q 8HR , NO NEW ORDERS AT THIS TIME, NO FURTHER RECOMMENDATIONS PER MD.
[2019-02-01 04:30] VITALS: BP 138/67
[2019-02-01] MEDS: PIPERACILLIN /TAZOBACTAM 3.375 G in IV D5W 100 ML IV SCH ×3 (04:44→21:26)
[2019-02-01 06:53] LABS: BASOPHILS % (AUTO) 0.2 % (0.0-2.0); EOSINOPHILS % (AUTO) 0.6 % (0.0-6.0); HEMATOCRIT 25 % (33-45); HEMOGLOBIN 8.6 g/dL (11.5-14.8); LYMPHOCYTES # (AUTO) 1.7 /CMM (0.8-4.8); LYMPHOCYTES % (AUTO) 11.3 % (20.0-44.0); MEAN CORPUSCULAR HGB CONC 35 g/dl (31.0-36.0); MEAN CORPUSCULAR VOLUME 89 fL (82-100); MONOCYTES # (AUTO) 0.9 /CMM (0.1-1.30); NEUTROPHILS # (AUTO) 12.6 /CMM (1.8-8.9); NEUTROPHILS % (AUTO) 81.9 % (43.0-81.0); PLATELET COUNT (AUTO) 294 /CMM (150-450); RED BLOOD CELL COUNT(AUTO) 2.78 MIL/uL (4.0-5.2); WHITE BLOOD COUNT (AUTO) 15.3 K/uL (4.3-11.0)
--- NOTE | 2019-02-01 07:06 | NUR ---
RN MS OPENING NOTES PATIENT IN BED AWAKE ALERT AND ORIENTED X4, RESPIRATIONS EVEN AND UNLABORED WITH EQUAL RISE AND FALL OF CHEST, DENIES ANY PAIN OR DISCOMFORT AT THIS TIME,IV SITE TO LEFT FA #22 AND LEFT AC #20 INTACT AND PATENT, NO REDNESS, NO INFILTRATION PRESENT, IVF IN PLACE ORDERED, CALL LIGHT KEPT WITHIN REACH SAFETY PRECAUTIONS IN PLACE, LOW BED AND LOCKED, RAE CATHETER IN PLACE AND DRAINING 3000CC OUTPUT CLEAR YELLOW WITH PROPER ALIGNMENT,FLUIDS OFFERED ALL NEEDS ATTENDED AT THIS TIME, WILL CONTINUE TO MONITOR AND ENDORSE TO NEXT SHIFT. REMAINS COMFORTABLE AT THIS TIME.ALL DUE MEDS GIVEN NO ADVERSE REACTIONS PRESENT.
[2019-02-01 07:11] LABS: CALCIUM, SERUM 7.8 mg/dL (8.5-10.1); CREATININE 1.3 mg/dL (0.6-1.3); MAGNESIUM 1.6 mg/dL (1.8-2.4); PHOSPHORUS 3.8 mg/dL (2.5-4.9); POTASSIUM 3.2 mmol/L (3.5-5.1)
[2019-02-01 07:19] LABS: FERRITIN 330 ng/mL (8-388)
[2019-02-01 07:24] LABS: IRON, SERUM 30 ug/dl (50-175); TOTAL IRON BINDING CAPACITY 239 ug/dl (250-450)
--- NOTE | 2019-02-01 07:30 | NUR ---
INITIAL RECEIVED PATIENT IN SITTING UP IN BED AWAKE ALERT AND ORIENTED X4, RESPIRATIONS EVEN AND UNLABORED WITH EQUAL RISE AND FALL OF CHEST, DENIES ANY PAIN OR DISCOMFORT AT THIS TIME,IV SITE TO LEFT FA #22 AND LEFT AC #20 INTACT AND PATENT, NO REDNESS, NO INFILTRATION PRESENT, IVF IN PLACE ORDERED, [id number] TO PT AND CALL LIGHT AND KEPT WITHIN REACH SAFETY PRECAUTIONS IN PLACE, LOW BED AND LOCKED, PATIENT AWARE OF NEW ORDER TO INSERT RAE CATHETER, VERBALIZES SHE UNDERSTANDS, DISCUSSED PLAN OF CARE, ALL NEEDS ATTENDED AT THIS TIME, WILL CONTINUE TO MONITOR. REMAINS COMFORTABLE AT THIS TIME. URINE AT 200 ML CLEAR AND YELLOW.
[2019-02-01 08:00] VITALS: BP 125/53
[2019-02-01] MEDS: PANTOPRAZOLE 40 MG TABLET.DR PO SCH (08:53)
[2019-02-01] MEDS: CALCIUM ACETATE 667 MG TABLET PO SCH ×3 (08:53→18:37)
[2019-02-01] MEDS: GABAPENTIN 300 MG CAPSULE PO SCH ×3 (08:53→18:37)
[2019-02-01] MEDS ORDERED: Magnesium 1GM/D5W 100ML PREMIX 100 ML IV SCH (09:24)
[2019-02-01] MEDS: POTASSIUM CL. PREMIX PERIPHER. 50 ML IV SCH ×4 (11:12→12:50)
[2019-02-01 12:00] VITALS: BP 116/67
[2019-02-01] MEDS: SOD FERRIC GLUC 125 MG in IV NS 0.9% 100 ML IV SCH (13:40)
[2019-02-01] MEDS: HYDROCODONE/APAP 5/325MG 1 EACH TABLET PO PRN (15:32)
[2019-02-01 16:00] VITALS: BP 148/78
[2019-02-01] MEDS: IV D5/ 0.9% NACL 1,000 ML IV PRN (18:51)
--- NOTE | 2019-02-01 18:54 | NUR ---
closing NO SIGNIFICANT CHANGE DURING THE SHIFT. ALL NEEDS ATTENDED. SAFETY MEASURES IN PLACE. BED LOCKED AND LOW, SIDE RIALS UPX2, CALL LIGHT IN REACH. ENDORSED TO PM NURSE FOR CONTINUITY OF CARE
[2019-02-01 20:00] VITALS: BP 137/83
--- NOTE | 2019-02-01 20:00 | NUR ---
MS RN NOTES RECEIVED PATIENT AWAKE IN BED WITH NO DISTRESS NOTED. CALL LIGHT WITHIN REACH. SON AND DTR IN LAW AT BEDSIDE. PATIENT WITH NO C/O PAIN OR DISCOMFORT. PERIPHERAL LINE INTACT AND PATENT. FC INTACT AND PATENT. BED IN LOW LOCK SETTING. ROOM FREE OF CLUTTER AND BELONGINGS KEPT NEAR BEDSIDE. WILL CONTINUE TO MONITOR.
[2019-02-01] MEDS: TAMSULOSIN 0.4 MG CAP.SR.24H PO SCH (21:21)
[2019-02-02 04:39] VITALS: BP 139/72
[2019-02-02] MEDS: PIPERACILLIN /TAZOBACTAM 3.375 G in IV D5W 100 ML IV SCH ×3 (05:10→20:55)
[2019-02-02 06:14] LABS: BASOPHILS % (AUTO) 0.4 % (0.0-2.0); EOSINOPHILS % (AUTO) 0.7 % (0.0-6.0); HEMATOCRIT 28 % (33-45); HEMOGLOBIN 9.3 g/dL (11.5-14.8); LYMPHOCYTES # (AUTO) 1.9 /CMM (0.8-4.8); LYMPHOCYTES % (AUTO) 14.7 % (20.0-44.0); MEAN CORPUSCULAR HGB CONC 34 g/dl (31.0-36.0); MEAN CORPUSCULAR VOLUME 89 fL (82-100); MONOCYTES # (AUTO) 0.7 /CMM (0.1-1.30); MONOCYTES % (AUTO) 5.5 % (2.0-12.0); NEUTROPHILS # (AUTO) 10.1 /CMM (1.8-8.9); NEUTROPHILS % (AUTO) 78.7 % (43.0-81.0); PLATELET COUNT (AUTO) 465 /CMM (150-450); RED BLOOD CELL COUNT(AUTO) 3.13 MIL/uL (4.0-5.2); WHITE BLOOD COUNT (AUTO) 12.8 K/uL (4.3-11.0)
[2019-02-02] MEDS: HYDROCODONE/APAP 5/325MG 1 EACH TABLET PO PRN ×2 (06:15→21:28)
[2019-02-02 06:22] LABS: CALCIUM, SERUM 8.3 mg/dL (8.5-10.1); CREATININE 1.2 mg/dL (0.6-1.3); MAGNESIUM 1.7 mg/dL (1.8-2.4); PHOSPHORUS 3.6 mg/dL (2.5-4.9)
--- NOTE | 2019-02-02 06:45 | NUR ---
MS RN NOTES PATIENT ASLEEP IN BED WITH NO DISTRESS NOTED. CALL LIGHT WITHIN REACH. ALL DUE MEDS GIVEN ORDERED WITH NO ASE NOTED. NO FURTHER C/O PAIN OR DISCOMFORT. FC INTACT, PATENT, AND DRAINED 3000ML YELLOW CLEAR URINE. PERIPHERAL LINES INTACT AND PATENT. SPUTUM COLLECTED AND PICKED UP BY LAB. ROOM FREE OF CLUTTER AND BELONGINGS KEPT NEAR BEDSIDE. BED IN LOW LOCK SETTING. WILL ENDORSE TO ONCOMING SHIFT.
[2019-02-02 07:44] VITALS: BP 116/69
[2019-02-02 07:52] VITALS: BP 116/69
--- NOTE | 2019-02-02 08:00 | NUR ---
RN NOTES RECEIVED PATIENT IN THE ROOM WALKING AROUND. PATIENT A/O X4, STABLE REFUSED PAIN, NO ACUTE RESPIRATORY DISTRESS, V/S STABLE. PATIENT ON RAE CATHETER INTACT, DARNING LIGHT YELLOW OUTPUT. INFUSING ZOSYN 25 ML/HR ON LEFT FA INTACT, ADMINISTERED SCHEDULED MEDICATION. NEEDS ATTENDED AND ANTICIPATED, SAFETY PRECAUTION MAINTAINED ALL THE TIME. PATIENT SELF CARE.
[2019-02-02 08:06] LABS: IMMUNOGLOBULIN A, SERUM 324 mg/dL (87-352); IMMUNOGLOBULIN G, SERUM 990 mg/dL (700-1600); IMMUNOGLOBULIN M, SERUM 32 mg/dL (26-217)
[2019-02-02] MEDS: CALCIUM ACETATE 667 MG TABLET PO SCH ×3 (08:40→19:06)
[2019-02-02] MEDS: PANTOPRAZOLE 40 MG TABLET.DR PO SCH (08:40)
[2019-02-02] MEDS: GABAPENTIN 300 MG CAPSULE PO SCH ×3 (08:40→19:06)
[2019-02-02] MEDS: Magnesium 1GM/D5W 100ML PREMIX 100 ML IV SCH ×2 (11:00→12:21)
[2019-02-02 12:00] VITALS: BP 118/70
[2019-02-02] MEDS: ACETAMINOPHEN 325 MG TABLET PO PRN (12:52)
--- NOTE | 2019-02-02 12:52 | NUR ---
RN NOTES ADMINISTERED TYLENOL 650 MG PO PRN FOR GENERALIZED PAIN 5/10 PER PATIENT REQUEST.
[2019-02-02] MEDS ORDERED: LEVO750T21 PO (13:00)
[2019-02-02] MEDS ORDERED: Calcium Acetate PO (13:00)
[2019-02-02] MEDS ORDERED: TAMS-12 PO (13:00)
[2019-02-02] MEDS: SOD FERRIC GLUC 125 MG in IV NS 0.9% 100 ML IV SCH (13:53)
--- NOTE | 2019-02-02 15:29 | NUR ---
clarified with cm guzman regarding home health cannot be arranged today ,per cm she notified price already,awaits hh arrangemnts prior to discharge.
[2019-02-02 16:00] VITALS: BP 120/75
--- NOTE | 2019-02-02 18:30 | NUR ---
RN NOTES PATIENT STABLE RESTING IN THE BED NO ACUTE RESPIRATORY DISTRESS, REFUSED PAIN. ADMINISTERED SCHEDULED MEDICATION. F/C DARNING LIGHT YELLOW OUTPUT, INFUSING ZOSYN 25 ML/HR INTACT ON LEFT WRIST.PATIENT AMBULATORY SELF CARE. CALL LIGHT WITHIN TO REACH. ENDORSED ONCOMING NURSE FOLLOW PLAN OF CARE.
--- NOTE | 2019-02-02 19:05 | NUR ---
RN MS OPENING NOTES RECEIVED PATIENT IN BED AWAKE ALERT AND ORIENTED X4, RESPIRATIONS EVEN AND UNLABORED WITH EQUAL RISE AND FALL OF CHEST, DENIES ANY PAIN OR DISCOMFORT AT THIS TIME, RAE CATHETER INTACT AND DRAINING WELL WITH PROPER ALIGNMENT, URINE YELLOW IN COLOR, IV SITE TO LEFT FA #20 G INTACT AND PATENT, IVF RUNNING ORDERED, ORIENTED TO STAFF AND CALL LIGHT AND KEPT WITHIN REACH, SAFETY PRECAUTIONS IN PLACE , LOW BED AND LOCKED, FLUIDS OFFERED, ALL NEEDS ATTENDED AT THIS TIME REMAINS COMFORTABLE WILL CONTINUE TO MONITOR AND ATTEND TO NEEDS.
[2019-02-02 20:00] VITALS: BP 115/71
[2019-02-02] MEDS: TAMSULOSIN 0.4 MG CAP.SR.24H PO SCH (21:01)
--- NOTE | 2019-02-02 21:28 | NUR ---
RN MS NOTES PATIENT COMPLAINT OF PAIN 8/10 TO GENERALIZE BODY REQUESTING FOR NORCO VS WNL NORCO PRN ORDERED GIVEN PATIENT REPOSITIONED WILL CONTINUE TO MONITOR FOR EFFECTIVENESS.
[2019-02-03 04:00] VITALS: BP 103/60
[2019-02-03] MEDS: PIPERACILLIN /TAZOBACTAM 3.375 G in IV D5W 100 ML IV SCH (04:08)
[2019-02-03] MEDS: IV D5/ 0.9% NACL 1,000 ML IV PRN (04:09)
[2019-02-03] MEDS: ACETAMINOPHEN 325 MG TABLET PO PRN (04:27)
--- NOTE | 2019-02-03 04:31 | NUR ---
RN MS NOTES PATIENT COMPLAIN OF BODY ACHES, REQUESTED FOR TYLENOL TYLENOL PRN GIVEN. WILL CONTINUE TO MONITOR.
--- NOTE | 2019-02-03 06:44 | NUR ---
RN MS CLOSING NOTES PATIENT IN BED AWAKE ALERT AND ORIENTED X4, RESPIRATIONS EVEN AND UNLABORED WITH EQUAL RISE AND FALL OF CHEST, DENIES ANY PAIN OR DISCOMFORT AT THIS TIME, RAE CATHETER INTACT AND DRAINING WELL WITH PROPER ALIGNMENT, URINE YELLOW IN COLOR 2300CC OUTPUT, IV SITE TO LEFT FA #20 G INTACT AND PATENT, IVF RUNNING ORDERED, CALL LIGHT KEPT WITHIN REACH, UPON ASKING IF PATIENT HAS WOUNDS FOR ASSESSMENT STATES " I DONT HAVE NO WOUNDS" SAFETY PRECAUTIONS IN PLACE , LOW BED AND LOCKED, FLUIDS OFFERED, ALL NEEDS ATTENDED AT THIS TIME REMAINS COMFORTABLE WILL CONTINUE TO MONITOR AND ATTEND TO NEEDS AND ENDORSE TO NEXT SHIFT.
[2019-02-03 06:49] LABS: BASOPHILS % (AUTO) 0.4 % (0.0-2.0); HEMATOCRIT 29 % (33-45); HEMOGLOBIN 9.8 g/dL (11.5-14.8); LYMPHOCYTES % (AUTO) 18.9 % (20.0-44.0); MEAN CORPUSCULAR HGB CONC 34 g/dl (31.0-36.0); MEAN CORPUSCULAR VOLUME 90 fL (82-100); MONOCYTES # (AUTO) 0.6 /CMM (0.1-1.30); NEUTROPHILS # (AUTO) 7.6 /CMM (1.8-8.9); NEUTROPHILS % (AUTO) 73.7 % (43.0-81.0); PLATELET COUNT (AUTO) 658 /CMM (150-450); RED BLOOD CELL COUNT(AUTO) 3.23 MIL/uL (4.0-5.2); WHITE BLOOD COUNT (AUTO) 10.3 K/uL (4.3-11.0)
--- NOTE | 2019-02-03 07:10 | NUR ---
RN MS OPENING NOTES RECEIVED PATIENT IN BED AWAKE ALERT AND ORIENTED X4, RESPIRATIONS EVEN AND UNLABORED, DENIES ANY PAIN OR DISCOMFORT AT THIS TIME, RAE CATHETER INTACT AND DRAINING WELL WITH PROPER ALIGNMENT, URINE YELLOW IN COLOR, IV SITE TO LEFT FA #20 G INTACT AND PATENT, IVF RUNNING ORDERED. CALL LIGHT WITHIN REACH, SAFETY PRECAUTIONS IN PLACE , LOW BED AND LOCKED, SIDE RAILS UP X2. WILL CONTINUE TO MONITOR.
[2019-02-03 07:37] LABS: CALCIUM, SERUM 7.9 mg/dL (8.5-10.1); CREATININE 1.4 mg/dL (0.6-1.3); MAGNESIUM 1.9 mg/dL (1.8-2.4); PHOSPHORUS 4.4 mg/dL (2.5-4.9); POTASSIUM 4.2 mmol/L (3.5-5.1)
[2019-02-03] MEDS: PANTOPRAZOLE 40 MG TABLET.DR PO SCH (07:44)
[2019-02-03] MEDS: CALCIUM ACETATE 667 MG TABLET PO SCH (07:44)
[2019-02-03 08:00] VITALS: BP 117/69
[2019-02-03] MEDS: GABAPENTIN 300 MG CAPSULE PO SCH (08:44)
--- NOTE | 2019-02-03 09:15 | NUR ---
RECEIVED THE D/C ORDER. RAE CATHETER REMOVED. INSTRUCTED PATIENT TO CALL WHEN SHE URINATE. Addendum: 02/03/19 at 1051 by JAY AUGUSTIN RN RAE CATHETER OUTPUT [phone] ML.
--- NOTE | 2019-02-03 10:50 | NUR ---
PATIENT REPORTED PEEING WITH NO DIFFICULTY.
--- NOTE | 2019-02-03 11:52 | NUR ---
PATIENT GOT DISCHARGED HOME. STABLE UPON DISCHARGE. WALKED TO THE MAIN ENTRANCE WITH NURSE, CALLED [facility] TO PICK HER UP. TALKED TO THE HIDE HOUSE SUPERVISOR MADELINE TO SET UP HOME HEALTH REFERRAL. ACCORDING TO PATIENT, SHE WILL CALL HER CLINIC TOMORROW TO SET UP AN APPOINTMENT WITH A UROLOGIST.
--- NOTE | 2019-02-03 12:55 | NUR ---
JUST GOT A PRESCRIPTION FOR THE PATIENT FROM [facility]. FAXED IT TO THE PATIENT'S PHARMACY. CALLED PATIENT AND INFORMED HER TO FOLLOW UP WITH HER PHARMACY. ALSO ASKED IF SHE CAN SEND SOMEONE TO PICK IT UP. WILL FOLLOW UP.
[2019-02-03 14:07] LABS: *SPE A/G RATIO 0.5 (0.7-1.7); *SPE ALBUMIN 1.7 g/dL (2.9-4.4); *SPE ALPHA-1-GLOBULIN 0.4 g/dL (0.0-0.4); *SPE ALPHA-2-GLOBULIN 0.8 g/dL (0.4-1.0); *SPE BETA GLOBULIN 1.1 g/dL (0.7-1.3); *SPE GLOBULIN, TOTAL 3.4 g/dL (2.2-3.9); *SPE M-SPIKE Not Observed g/dL (Not Observed); *SPEGAMMA GLOBULIN 1.1 g/dL (0.4-1.8)
[2019-02-03 17:57] LABS: OCCULT BLOOD STOOL NEGATIVE (NEGATIVE)
--- NOTE | 2019-02-03 19:56 | NUR ---
CALLED PATIENT AND SHE CONFIRMED PICKING UP HER MEDICATION FROM THE PHARMACY.
== END 2019-02-03 11:45 | disposition home or self-care (01) | DRG 720 ==
LOC: ER 21:55 → TELE-TD 01-25 02:44 → TELE1 01-25 15:55 → MEDSG1 01-28 10:11
PROVIDERS: ATTEND Registered Nurse
PROC: 05HB33Z Insertion of Infusion Device into Right Basilic Vein, Percutaneous Approach (ICD-10-PCS; principal; 2019-01-31)
DX: A41.9 Sepsis, unspecified organism (principal); N17.0 Acute kidney failure with tubular necrosis; D69.6 Thrombocytopenia, unspecified; J15.9 Unspecified bacterial pneumonia; E44.0 Moderate protein-calorie malnutrition; K70.30 Alcoholic cirrhosis of liver without ascites; N31.9 Neuromuscular dysfunction of bladder, unspecified; R65.20 Severe sepsis without septic shock; K29.70 Gastritis, unspecified, without bleeding; N18.9 Chronic kidney disease, unspecified; N12 Tubulo-interstitial nephritis, not specified as acute or chronic; B96.20 Unspecified Escherichia coli [E. coli] as the cause of diseases classified elsewhere; Z90.49 Acquired absence of other specified parts of digestive tract; I12.9 Hypertensive chronic kidney disease with stage 1 through stage 4 chronic kidney disease, or unspecified chronic kidney disease; Z98.51 Tubal ligation status; Z79.899 Other long term (current) drug therapy; E16.2 Hypoglycemia, unspecified; M85.9 Disorder of bone density and structure, unspecified; N39.498 Other specified urinary incontinence; N32.81 Overactive bladder; Z68.38 Body mass index [BMI] 38.0-38.9, adult
CPT/HCPCS: 36415; 70450-TC; 71045-TC; 71260-TC; 76705-TC; 80048-TC; 80053-TC; 80061-TC; 80076-TC; 81000-TC; 82272-TC; 82570-TC; 82728-TC; 82784; 82962-TC; 83540-TC; 83605-TC; 83690-TC; 83735-TC; 84100-TC; 84155; 84165; 84300-TC; 84443-TC; 84484-TC; 84703-TC; 85025-TC; 85652-TC; 86225; 86235; 86334; 86706; 86803; 87040-TC; 87070-TC; 87081-TC; 87086-TC; 87186-TC; 87340; G0378; J0696; J2270; J2405; J2543; J2765; J2916; J3475; J3480; J3490; J7030; J7040; J7042; J7050; J7060; Q9967